=== PATIENT | female | born 1995 | race Caucasian/White ===

== ENCOUNTER 2017-02-14 15:33 | Emergency (ER) | payer OTHER ==
--- NOTE | ~2017-02-14 | CR63 ---
[facility]. [facility] A Service of [facility] & [facility] RADIOLOGY TEXT RESULTS PATIENT: MACY STOREY LOCATION: SED : [birth year] UNIT #: [id number] AGE: [address]: Lanette Dunne APRN SEX: F ORDER DR: [id number] [place] [id number] E MR#: [id number] Acc #: [id number] NAME: MACY STOREY : 1995 SEX: F STUDY DATE/TIME: 02/14/2017 16:18 UNIT: SED ROOM: STUDY DESCRIPTION: CR Chest 2 View Attending Physician: Lanette Dunne A.P.R.N. Ordering Physician: Lanette Dunne A.P.R.N. Primary Care Physician: Richard Gallardo M.D. MEDICAL IMAGING REPORT This report is preliminary unless electronic signature is present. EXAM Chest x-ray 02/14/2017 INDICATION Right-side chest pain that started last night at 7 o'clock with some shortness of air. FINDINGS PA and lateral examination of the chest upright shows a good expansion of the parenchyma with a normal distribution of the pulmonary vascularity. There is no indication of congestion, effusion, infiltrate, tumor, or nodular density. The pleural reflections and diaphragmatic contours are normal. The cardiac silhouette and mediastinal anatomy is within normal limits. IMPRESSION Normal chest. Dictated by... Prem Gonzales Jr., M.D. THIS IS AN ELECTRONICALLY VERIFIED REPORT Prem Gonzales Jr., M.D. at 02/18/2017 2:24 PM ALBER/peng TD: 02/15/2017 06:49 JOB #: [id number] MEDICAL IMAGING REPORT
--- NOTE | ~2017-02-14 | EKG ---
PATIENT: MACY STOREY UNIT #: [id number] Ventricular Rate: 104 BPM Atrial Rate: 104 BPM P-R Interval: 124 ms QRS Duration: 78 ms Q-T Interval: 340 ms QTC Calculation(Bezet): 447 ms P [place]: 72 degrees Calculated R [place]: 87 degrees Calculated T [place]: 60 degrees Diagnosis Line: Sinus tachycardia Diagnosis Line: Otherwise normal ECG Diagnosis Line: No previous ECGs available Diagnosis Line: Confirmed by NITISH TRAYLOR MD ([id number]) on Diagnosis Line: 03/21/2017 7:04:38 AM INTERPRETING MD: WAYNE
[~2017-02-14 15:33] MED LIST: BACTRIM DS TABL1 TAB PO; FLAGYL PO; NO MEDICATIONS; TRAZODONE PO; VOLTAREN75 MG PO; ZOLOFT PO
[2017-02-14 15:52] LABS: BASOPHIL# 0.1 X10e3 (0-0.3); BASOPHIL% 1.2 % (0-2.5); EOSINOPHIL# 0.1 X10e3 (0-0.7); EOSINOPHIL% 0.8 % (0.0-7.0); HEMATOCRIT 43.8 % (35.0-45.0); HEMOGLOBIN 14.8 gm/dL (12.0-16.0); LYMPHOCYTE# 3.2 X10e3 (1.0-3.5); LYMPHOCYTE% 41.6 % (17.0-45.0); MEAN CELL VOLUME 89.5 FL (83-96); MEAN CORPUSCULAR HEMOGLOBIN 30.3 PG (28-34); MEAN CORPUSCULAR HGB CONC 33.9 g/dL (30-36); MEAN PLATELET VOLUME 8.3 FL (6.5-11.5); MONOCYTE# 0.8 X10e3 (0-1.0); MONOCYTE% 11.1 % (3.0-12.0); NEUTROPHIL# 3.4 X10e3 (1.5-7.1); NEUTROPHIL% 45.3 % (40-75); PLATELET COUNT 243 X10e3 (140-420); RED BLOOD COUNT 4.89 X10e (3.90-5.30); RED CELL DISTRIBUTION WIDTH 12.8 % (11.0-15.5); WHITE BLOOD COUNT 7.6 X10e3 (4.0-10.5)
[2017-02-14 15:53] LABS: DIFF IND NO
[2017-02-14 16:09] LABS: POC - CKMB <1.0 ng/mL (0.0-7.9); POC - MYOGLOBIN 24.8 ng/mL (0.0-169.0); POC - TROPONIN <0.05 ng/mL (<=0.05)
[2017-02-14 16:11] LABS: ALBUMIN SERUM 4.7 g/dL (3.5-5.0); ALKALINE PHOSPHATASE 69 U/L (32-92); ALT (SGPT) 20 U/L (10-40); AST (SGOT) 21 U/L (10-42); BILIRUBIN, DIRECT 0.1 mg/dL (0.0-0.2); BILIRUBIN,INDIRECT 0.8 mg/dL (0.0-0.9); BILIRUBIN,TOTAL 0.9 mg/dL (0.2-2.0); BLOOD UREA NITROGEN 13 mg/dL (9-23); BUN/CREATININE RATIO 14.44; CALCIUM SERUM 9.7 mg/dL (8.4-10.2); CARBON DIOXIDE 25 mmol/L (22-31); CHLORIDE 102 mmol/L (100-111); CREATININE SERUM 0.9 mg/dL (0.6-1.4); GLOM FILT RATE Estimated ABOVE60 mL/min (>60); GLUCOSE FASTING 87 mg/dL (70-110); POTASSIUM 3.7 mmol/L (3.5-5.1); SODIUM 135 mmol/L (135-145)
[2017-02-14 16:30] LABS: AMPHETAMINE POS (NEG); BARBITURATES NEG (NEG); BENZODIAZEPINES NEG (NEG); COCAINE NEG (NEG); MARIJUANA POS (NEG); OPIATES NEG (NEG); TRICYCLIC ANTIDEPRESSANTS NEG (NEG); U METHADONE NEG (NEG)
== END 2017-02-14 18:07 | disposition home or self-care (01) ==
LOC: SED 15:33
PROVIDERS: Nurse Practitioner
DX: R07.89 Other chest pain (principal)
CPT/HCPCS: 36415; 71020; 80048; 80076; 80307; 82553; 83874; 84484; 84703; 85025; 85379; 93005; 96360; 99284

== ENCOUNTER 2017-07-17 20:24 | Emergency (ER) | payer OTHER ==
[~2017-07-17] VITALS: Ht 170.2 cm; Wt 59.0 kg
--- NOTE | ~2017-07-17 | CR20 ---
[facility]. [facility] A Service of [facility] & [facility] RADIOLOGY TEXT RESULTS PATIENT: MACY ST LOCATION: SED : [birth year] UNIT #: [id number] AGE: [address]: MILI ONEAL SEX: F ORDER DR: [id number] [address] [address] [id number] E MR#: [id number] Acc #: [id number] NAME: MACY ST : 1995 SEX: F STUDY DATE/TIME: 07/17/2017 20:53 UNIT: SED ROOM: STUDY DESCRIPTION: CR Ankle Min 3 Views Lt Attending Physician: Mili Oneal Aprn Ordering Physician: Mili Oneal Aprn Primary Care Physician: Richard Gallardo M.D. MEDICAL IMAGING REPORT This report is preliminary unless electronic signature is present. EXAM Left ankle 3 views HISTORY Ankle pain after fall and twisting injury 2 days ago. FINDINGS 3 views left ankle demonstrate normal bone alignment. Mild soft tissue swelling over the lateral malleolus. No fracture, joint space narrowing or dislocation. IMPRESSION 1. No fracture. 2. Mild soft tissue swelling over the lateral malleolus. Dictated by... Nickolas Harris M.D. THIS IS AN ELECTRONICALLY VERIFIED REPORT Nickolas Harris M.D. at 07/18/2017 11:25 PM ROXANA/kya TD: 07/18/2017 04:16 JOB #: [id number] MEDICAL IMAGING REPORT Page 1 of 1
[2017-07-17] MEDS ORDERED: MOTRIN400 M1 PO (21:56)
== END 2017-07-17 22:05 | disposition home or self-care (01) ==
LOC: SED 20:24
DX: S93.402A Sprain of unspecified ligament of left ankle, initial encounter (principal); S40.812A Abrasion of left upper arm, initial encounter; W10.9XXA Fall (on) (from) unspecified stairs and steps, initial encounter; Y92.009 Unspecified place in unspecified non-institutional (private) residence as the place of occurrence of the external cause
CPT/HCPCS: 29540; 73610; 99283